=== PATIENT | female | born 1995 | race Caucasian/White ===

== ENCOUNTER 2018-05-11 05:42 | Inpatient (IN) | payer OTHER ==
[2018-05-11] MEDS ORDERED: NACL 0.9% 3 ML SYG IV (06:00)
[2018-05-11] MEDS ORDERED: morphine 2 MG INJ IV (06:00)
[2018-05-11] MEDS ORDERED: ONDANSETRON 4 MG INJ IV (06:00)
[2018-05-11 07:40] LABS: ABNORMAL IP MESSAGE 1; HEMATOCRIT 37.7 % (37.0-47.0); HEMOGLOBIN 12.7 g/dl (12.0-16.0); MEAN CORPUSCULAR HEMOGLOBIN 29.7 pg (29.0-33.0); MEAN CORPUSCULAR HGB CONC 33.7 g/dl (32.0-37.0); MEAN CORPUSCULAR VOLUME 88.1 fl (82.0-101.0); MEAN PLATELET VOLUME 13.1 fl (7.4-10.4); PLATELET COUNT 105 10^3/UL (140-415); RED BLOOD COUNT 4.28 10^6/ul (4.20-5.40); RED CELL DISTRIBUTION WIDTH 13.1 % (11.5-14.5)
[2018-05-11 07:40] LABS: WHITE BLOOD COUNT 6.5 10^3/ul (4.8-10.8)
[2018-05-11 07:45] LABS: ADD MAN DIFF? YES; POSITIVE DIFF @See below
[2018-05-11 08:06] LABS: INR 0.96; PROTIME 12.9 Sec (11.9-14.9)
[2018-05-11 08:07] LABS: PARTIAL THROMBOPLASTIN TIME 35.8 Sec (23.0-35.0)
[2018-05-11 08:09] LABS: ALANINE AMINOTRANSFERASE 224 IU/L (13-69); ALBUMIN 3.6 g/dl (3.3-4.9); ALBUMIN/GLOBULIN RATIO 1.44; ALKALINE PHOSPHATASE 207 IU/L (42-121); ANION GAP 10 (5-13); ASPARTATE AMINO TRANSFERASE 156 IU/L (15-46); BILIRUBIN,INDIRECT 0.4 mg/dl (0-1.1); BILIRUBIN,TOTAL 1.2 mg/dl (0.2-1.3); BLOOD UREA NITROGEN 9 mg/dl (7-20); CALCIUM 8.7 mg/dl (8.4-10.2); CARBON DIOXIDE 29 mmol/L (21-31); CHLORIDE 103 mmol/L (97-110); CHOL/HDL RATIO 4.7 RATIO; CHOLESTEROL 114 mg/dl (100-200); CREATININE 0.68 mg/dl (0.44-1.00); Estimated GFR > 60 mL/min (>60); GLUCOSE 87 mg/dl (70-220); HDL CHOLESTEROL 24 mg/dl (33-83); LDL CHOLESTEROL,CALCULATED 58 mg/dl; PHOSPHORUS 3.9 mg/dl (2.5-4.9); POTASSIUM 3.6 mmol/L (3.5-5.1); SODIUM 142 mmol/L (135-144); TOTAL PROTEIN 6.1 g/dl (6.1-8.1); TRIGLYCERIDES 159 mg/dl (0-149)
[2018-05-11 08:25] LABS: T3 UPTAKE 27.4 % (23.5-40.5)
[2018-05-11 08:49] LABS: HIV 1&2 ANTIBODY NEGATIVE (NEGATIVE)
[2018-05-11 09:19] LABS: FREE THYROXINE INDEX (Calc) 3.43 ug/ml (0.65-3.89); T4 (THYROXINE) 12.5 ug/dl (5.5-11.0)
[2018-05-11] MEDS: DEXTROSE 5%-0.45% NACL 1,000 ML IV ×3 (09:50→20:26)
[2018-05-11 10:21] LABS: ANISOCYTOSIS 1+ (0-0); BAND NEUTROPHILS % (M) 16 % (0-4); EOSINOPHILS % (M) 2 % (0-7); GIANT THROMBO% (M) 2 % (0-0); LYMPHOCYTES #M 1.9 10^3/ul (0.8-2.9); LYMPHOCYTES % (M) 30 % (15-51); MICROCYTOSIS 1+ (0-0); MONOCYTE #M 0.2 10^3/ul (0.3-0.9); MONOCYTES % (M) 4 % (0-11); PLATELET ESTIMATE DECREASED; POIKILOCYTOSIS 1+ (0-0); REACTIVE LYMPHOCYTES #M 0.7 10^3/ul (0.0-0.0); REACTIVE LYMPHOCYTES% (M) 12 % (0-0); SEG NEUT #M 2.4 10^3/ul (1.6-7.5); SEGMENTED NEUTROPHILS (M) % 36 % (39-77); SMUDGE%M 12 % (0-0)
[2018-05-11] MEDS: ACETAMINOPHEN 325 MG TAB PO ×2 (14:30→22:31)
[2018-05-11] MEDS: DIPHENHYDRAMINE 25 MG CAP PO (22:31)
[2018-05-12] MEDS: DEXTROSE 5%-0.45% NACL 1,000 ML IV ×3 (05:16→14:18)
[2018-05-12 05:59] LABS: WHITE BLOOD COUNT 9.4 10^3/ul (4.8-10.8)
[2018-05-12 05:59] LABS: ABNORMAL IP MESSAGE 1; HEMOGLOBIN 11.6 g/dl (12.0-16.0); MEAN CORPUSCULAR HEMOGLOBIN 29.7 pg (29.0-33.0); MEAN CORPUSCULAR HGB CONC 34.1 g/dl (32.0-37.0); MEAN CORPUSCULAR VOLUME 87.2 fl (82.0-101.0); MEAN PLATELET VOLUME 12.5 fl (7.4-10.4); PLATELET COUNT 115 10^3/UL (140-415); RED CELL DISTRIBUTION WIDTH 13.4 % (11.5-14.5)
[2018-05-12 06:13] LABS: ADD MAN DIFF? YES; POSITIVE DIFF @See below
[2018-05-12 06:22] LABS: ANION GAP 5 (5-13); BLOOD UREA NITROGEN 7 mg/dl (7-20); CALCIUM 8.5 mg/dl (8.4-10.2); CARBON DIOXIDE 28 mmol/L (21-31); CHLORIDE 108 mmol/L (97-110); Estimated GFR > 60 mL/min (>60); GLUCOSE 103 mg/dl (70-220); MAGNESIUM 2.2 mg/dl (1.7-2.5); PHOSPHORUS 4.9 mg/dl (2.5-4.9); POTASSIUM 3.8 mmol/L (3.5-5.1); SODIUM 141 mmol/L (135-144)
[2018-05-12 06:23] LABS: ALANINE AMINOTRANSFERASE 498 IU/L (13-69); ALBUMIN 3.2 g/dl (3.3-4.9); ALKALINE PHOSPHATASE 164 IU/L (42-121); ASPARTATE AMINO TRANSFERASE 428 IU/L (15-46); BILIRUBIN,INDIRECT 0.2 mg/dl (0-1.1); BILIRUBIN,TOTAL 0.2 mg/dl (0.2-1.3); TOTAL PROTEIN 5.5 g/dl (6.1-8.1)
[2018-05-12 09:16] LABS: ANISOCYTOSIS 1+ (0-0); BAND NEUTROPHILS #M 0.1 10^3/ul (0.0-0.6); BAND NEUTROPHILS % (M) 2 % (0-4); LYMPHOCYTES % (M) 54 % (15-51); MICROCYTOSIS 1+ (0-0); MONOCYTE #M 0.3 10^3/ul (0.3-0.9); MONOCYTES % (M) 4 % (0-11); PLATELET ESTIMATE DECREASED; POIKILOCYTOSIS 1+ (0-0); REACTIVE LYMPHOCYTES #M 2.4 10^3/ul (0.0-0.0); REACTIVE LYMPHOCYTES% (M) 26 % (0-0); SEG NEUT #M 1.3 10^3/ul (1.6-7.5); SEGMENTED NEUTROPHILS (M) % 14 % (39-77); SMUDGE%M 12 % (0-0); SPHEROCYTES 1+ (0-0)
[2018-05-12 19:11] LABS: ANA SCREEN POSITIVE (NEGATIVE)
[2018-05-12 19:57] LABS: ANA PATTERN NUCLEOLAR; ANA TITER 1:40 titer
[2018-05-13] MEDS: DEXTROSE 5%-0.45% NACL 1,000 ML IV ×3 (01:44→22:01)
[2018-05-13 05:36] LABS: ABNORMAL IP MESSAGE 1; HEMATOCRIT 37.1 % (37.0-47.0); HEMOGLOBIN 12.3 g/dl (12.0-16.0); MEAN CORPUSCULAR HEMOGLOBIN 29.2 pg (29.0-33.0); MEAN CORPUSCULAR HGB CONC 33.2 g/dl (32.0-37.0); MEAN CORPUSCULAR VOLUME 88.1 fl (82.0-101.0); MEAN PLATELET VOLUME 11.5 fl (7.4-10.4); PLATELET COUNT 168 10^3/UL (140-415); RED BLOOD COUNT 4.21 10^6/ul (4.20-5.40); RED CELL DISTRIBUTION WIDTH 13.5 % (11.5-14.5)
[2018-05-13 05:37] LABS: ADD MAN DIFF? YES; POSITIVE DIFF @See below
[2018-05-13 06:04] LABS: ALANINE AMINOTRANSFERASE 587 IU/L (13-69); ALBUMIN 3.7 g/dl (3.3-4.9); ALBUMIN/GLOBULIN RATIO 1.08; ALKALINE PHOSPHATASE 151 IU/L (42-121); ANION GAP 6 (5-13); ASPARTATE AMINO TRANSFERASE 350 IU/L (15-46); BILIRUBIN,INDIRECT 0.3 mg/dl (0-1.1); BILIRUBIN,TOTAL 0.3 mg/dl (0.2-1.3); BLOOD UREA NITROGEN 6 mg/dl (7-20); CALCIUM 8.9 mg/dl (8.4-10.2); CARBON DIOXIDE 31 mmol/L (21-31); CHLORIDE 107 mmol/L (97-110); CREATININE 0.59 mg/dl (0.44-1.00); Estimated GFR > 60 mL/min (>60); GLUCOSE 101 mg/dl (70-220); POTASSIUM 3.6 mmol/L (3.5-5.1); SODIUM 144 mmol/L (135-144); TOTAL PROTEIN 7.1 g/dl (6.1-8.1)
[2018-05-13 07:05] LABS: ANISOCYTOSIS 1+ (0-0); BAND NEUTROPHILS #M 0.6 10^3/ul (0.0-0.6); BAND NEUTROPHILS % (M) 6 % (0-4); GIANT THROMBO% (M) 1 % (0-0); LYMPHOCYTES #M 2.7 10^3/ul (0.8-2.9); LYMPHOCYTES % (M) 27 % (15-51); MICROCYTOSIS 1+ (0-0); MONOCYTE #M 0.2 10^3/ul (0.3-0.9); MONOCYTES % (M) 2 % (0-11); PLATELET ESTIMATE NORMAL; POIKILOCYTOSIS 1+ (0-0); POLYCHROMASIA 1+ (0-0); REACTIVE LYMPHOCYTES #M 4.7 10^3/ul (0.0-0.0); REACTIVE LYMPHOCYTES% (M) 47 % (0-0); SEG NEUT #M 1.9 10^3/ul (1.6-7.5); SEGMENTED NEUTROPHILS (M) % 18 % (39-77); SMUDGE%M 3 % (0-0)
[2018-05-13 14:36] LABS: MITOCHONDRIAL TB NEGATIVE (NEGATIVE); SMOOTH MUSCLE AB SCREEN NEGATIVE (NEGATIVE)
[2018-05-13] MEDS: DIPHENHYDRAMINE 25 MG CAP PO (23:23)
[2018-05-14] MEDS: DEXTROSE 5%-0.45% NACL 1,000 ML IV ×2 (05:46→15:41)
[2018-05-14 06:32] LABS: ABNORMAL IP MESSAGE 1; HEMATOCRIT 34.6 % (37.0-47.0); HEMOGLOBIN 11.5 g/dl (12.0-16.0); MEAN CORPUSCULAR HEMOGLOBIN 29.3 pg (29.0-33.0); MEAN CORPUSCULAR HGB CONC 33.2 g/dl (32.0-37.0); MEAN CORPUSCULAR VOLUME 88.3 fl (82.0-101.0); MEAN PLATELET VOLUME 11.5 fl (7.4-10.4); PLATELET COUNT 181 10^3/UL (140-415); RED BLOOD COUNT 3.92 10^6/ul (4.20-5.40); RED CELL DISTRIBUTION WIDTH 13.5 % (11.5-14.5)
[2018-05-14 06:32] LABS: WHITE BLOOD COUNT 8.3 10^3/ul (4.8-10.8)
[2018-05-14 06:51] LABS: LIPASE 165 U/L (23-300)
[2018-05-14 06:51] LABS: AMYLASE 40 U/L (11-123)
[2018-05-14 07:00] LABS: INR 0.96; PROTIME 12.9 Sec (11.9-14.9)
[2018-05-14 07:13] LABS: ADD MAN DIFF? YES; POSITIVE DIFF @See below
[2018-05-14 07:24] LABS: ALANINE AMINOTRANSFERASE 380 IU/L (13-69); ALBUMIN 3.4 g/dl (3.3-4.9); ALBUMIN/GLOBULIN RATIO 1.06; ALKALINE PHOSPHATASE 121 IU/L (42-121); ANION GAP 5 (5-13); ASPARTATE AMINO TRANSFERASE 142 IU/L (15-46); BILIRUBIN,INDIRECT 0.2 mg/dl (0-1.1); BILIRUBIN,TOTAL 0.2 mg/dl (0.2-1.3); BLOOD UREA NITROGEN 7 mg/dl (7-20); CALCIUM 8.5 mg/dl (8.4-10.2); CARBON DIOXIDE 27 mmol/L (21-31); CHLORIDE 110 mmol/L (97-110); CREATININE 0.65 mg/dl (0.44-1.00); Estimated GFR > 60 mL/min (>60); GLUCOSE 106 mg/dl (70-220); POTASSIUM 3.7 mmol/L (3.5-5.1); SODIUM 142 mmol/L (135-144); TOTAL PROTEIN 6.6 g/dl (6.1-8.1)
[2018-05-14 08:59] LABS: ANISOCYTOSIS 1+ (0-0); BAND NEUTROPHILS #M 0.3 10^3/ul (0.0-0.6); BAND NEUTROPHILS % (M) 4 % (0-4); BASOPHILS % (M) 1 % (0-2); LYMPHOCYTES % (M) 49 % (15-51); MICROCYTOSIS 1+ (0-0); MONOCYTES % (M) 1 % (0-11); PLATELET ESTIMATE NORMAL; REACTIVE LYMPHOCYTES #M 0.8 10^3/ul (0.0-0.0); REACTIVE LYMPHOCYTES% (M) 10 % (0-0); SEG NEUT #M 2.9 10^3/ul (1.6-7.5); SEGMENTED NEUTROPHILS (M) % 35 % (39-77); SMUDGE%M 46 % (0-0)
[2018-05-14] MEDS: LIDOCAINE 1% (MPF) 5 ML VIAL ×2 (10:16→10:17)
[2018-05-15 13:57] LABS: ANCA SCREEN NEGATIVE (NEGATIVE)
[2018-05-15 17:46] LABS: MYELOPEROXIDASE ANTIBODY <1.0 AI; PROTEINASE-3 ANTIBODY <1.0 AI
== END 2018-05-14 18:56 | disposition home or self-care (01) | DRG 446 ==
LOC: PP2 05:42
PROC: 0FB13ZX Excision of Right Lobe Liver, Percutaneous Approach, Diagnostic (ICD-10-PCS; principal; 2018-05-14)
DX: K83.09 Other cholangitis (principal); D69.6 Thrombocytopenia, unspecified
CPT/HCPCS: 74181; 76942; 80048; 80053; 80061; 80076; 82150; 82787; 83690; 83735; 84100; 84436; 84443; 84479; 84703; 85025; 85610; 85730; 86021; 86038; 86255; 86376; 86703; 88307; 88313